=== PATIENT | female | born 1995 | race Caucasian/White ===

== ENCOUNTER 2017-03-27 17:42 | Inpatient (IN) | payer BC, OTHER ==
[2017-03-27] MEDS ORDERED: BIRTH CONTROL PO (17:48)
[2017-03-27 18:54] LABS: BASO % 0.2 % (0-2); EOSINOPHIL ABSOLUTE COUNT 0.1 tho/cmm (0.0-0.7); HCT-HEMATOCRIT 37.5 % (34.0-49.0); IMMATURE GRANULOCYTES ABSOLUTE 0.02 tho/cmm (0-0.03); IMMATURE GRANULOCYTES PERCENT 0.2 % (0-0.3); LYMPH % 25.1 % (20-45); LYMPH ABSOLUTE COUNT 2.6 tho/cmm (0.8-4.5); MCH (MEAN CORPUSCULAR HGB) 29.3 pg (28.0-32.0); MCHC MEAN CORPUSCULAR HGB CONC 34.7 % (32.0-36.0); MCV (MEAN CELL VOLUME) 84.7 fl (82.0-96.0); MEAN PLATELET VOLUME 10.1 cmc (9.4-12.4); MONO % 5.1 % (0-12); MONOCYTE ABSOLUTE COUNT 0.5 tho/cmm (0.0-1.2); NEUTROPHIL ABSOLUTE COUNT 7.2 tho/cmm (1.6-8.0); NEUTROPHIL-AUTOMATED 7.2 tho/cmm (1.6-8.0); NEUTROPHILS % 68.4 % (40-80); PLATELET COUNT 327 tho/cmm (150-450); RED BLOOD COUNT 4.43 mil/cmm (4.00-5.20); RED CELL DISTRIBUTION WIDTH 12.3 % (12.4-16.4); WHITE BLOOD COUNT 10.5 tho/cmm (4.0-10.0)
[2017-03-27 19:09] LABS: PREGNANCY-SERUM NEGATIVE (NEGATIVE)
[2017-03-27 19:11] LABS: ANION GAP 14 mmol/L (0-20); BLOOD UREA NITROGEN 16 mg/dl (6-24); CARBON DIOXIDE-VENOUS 26 mmol/L (22-32); CHLORIDE 106 mmol/l (96-110); GLUCOSE 150 mg/dL (70-110); POTASSIUM 4.6 mmol/L (3.7-5.1); SODIUM 141 mmol/L (135-145); eGFR VALUE FOR BLACK >90 mL/Min
--- NOTE | 2017-03-31 14:39 | NUR ---
6654 VIRTUAL NURSE NOTE- ROUNDING DONE. PATIENT STATES NEEDS CT SCAN THIS AFTERNOON AND POSSIBLE SURGERY. NO DISCHARGE TODAY. PATIENT VERBALIZES BEING DISAPPOINTED ABOUT NOT BEING DISCHARGED. DENIES DYSPNEA AND WAS INSTRUCTED TO KEEP OXYGEN ON. STATES DOES HAVE SOME BACK SPASMS, BUT IS SOMEWHAT CONTROLLED WITH PAIN MEDICATION. Kimberly QURESHI RN
[2017-04-03] MEDS ORDERED: VALIUM5 M1 PO (14:59)
== END 2017-04-03 15:45 | DRG 201 ==
LOC: EDMED 17:42 → EMR2 03-28 00:43 → CAR1 03-28 00:56 → 5WD 03-29 11:40
PROVIDERS: Family Medicine; ADMIT Internal Medicine Critical Care Medicine
PROC: 0W9B30Z Drainage of Left Pleural Cavity with Drainage Device, Percutaneous Approach (ICD-10-PCS; principal; 2017-03-27)
DX: J93.83 Other pneumothorax (principal); Z88.0 Allergy status to penicillin; J93.82 Other air leak; Z79.3 Long term (current) use of hormonal contraceptives
CPT/HCPCS: J1885; J2060; J2360; J3010

== ENCOUNTER 2017-04-05 09:31 | Inpatient (IN) | payer BC, OTHER ==
[~2017-04-05 09:31] MED LIST: BIRTH CONTROL PO; VALIUM5 M1 PO
[2017-04-06 05:40] LABS: BASO % 0.4 % (0-2); EOS % 3.3 % (0-7); EOSINOPHIL ABSOLUTE COUNT 0.2 tho/cmm (0.0-0.7); HCT-HEMATOCRIT 34.8 % (34.0-49.0); HGB-HEMOGLOBIN 12.1 gm/dl (12.0-15.5); LYMPH % 46.7 % (20-45); LYMPH ABSOLUTE COUNT 3.2 tho/cmm (0.8-4.5); MCH (MEAN CORPUSCULAR HGB) 29.2 pg (28.0-32.0); MCHC MEAN CORPUSCULAR HGB CONC 34.8 % (32.0-36.0); MCV (MEAN CELL VOLUME) 84.1 fl (82.0-96.0); MEAN PLATELET VOLUME 10.5 cmc (9.4-12.4); MONO % 7.5 % (0-12); MONOCYTE ABSOLUTE COUNT 0.5 tho/cmm (0.0-1.2); NEUTROPHIL ABSOLUTE COUNT 2.9 tho/cmm (1.6-8.0); NEUTROPHIL-AUTOMATED 2.9 tho/cmm (1.6-8.0); NEUTROPHILS % 42.1 % (40-80); PLATELET COUNT 286 tho/cmm (150-450); RED BLOOD COUNT 4.14 mil/cmm (4.00-5.20); RED CELL DISTRIBUTION WIDTH 11.9 % (12.4-16.4); WHITE BLOOD COUNT 6.9 tho/cmm (4.0-10.0)
[2017-04-06 06:09] LABS: PROTHROMBIN TIME 11.4 SECONDS (9.0-13.6)
[2017-04-09 05:12] LABS: HGB-HEMOGLOBIN 11.1 gm/dl (12.0-15.5); PLATELET COUNT 296 tho/cmm (150-450)
[2017-04-09] MEDS ORDERED: NORCO 5-325 TA1 EACH PO (15:09)
== END 2017-04-09 17:25 | DRG 165 ==
LOC: EDMED 09:31 → EMR2 12:10 → CAR1 12:54 → PACU 04-06 14:07 → PCUB 04-06 15:50
PROVIDERS: Surgery; ADMIT Internal Medicine Critical Care Medicine
PROC: 0B5P4ZZ Destruction of Left Pleura, Percutaneous Endoscopic Approach (ICD-10-PCS; principal; 2017-04-05)
DX: J93.9 Pneumothorax, unspecified (principal)
CPT/HCPCS: J1170; J1200; J1650; J1885; J2270; J2405; J3010; J3370; J3480

== ENCOUNTER 2017-05-03 06:34 | Emergency (ER) | payer BC ==
[~2017-05-03 06:34] MED LIST changes: +NORCO 5-325 TA1 EACH PO
[2017-05-03 08:04] LABS: eGFR VALUE FOR BLACK >90 mL/Min
[2017-05-03 08:07] LABS: PREGNANCY-SERUM NEGATIVE (NEGATIVE)
[2017-05-03] MEDS ORDERED: NORCO 5-325 TA1 EACH PO (09:22)
== END 2017-05-03 09:37 ==
LOC: EDMED 06:34
PROVIDERS: Emergency Medicine
DX: R09.1 Pleurisy (principal); Z87.09 Personal history of other diseases of the respiratory system
CPT/HCPCS: J7030; Q9967